=== PATIENT | male | born 1970 | race Caucasian/White ===

== ENCOUNTER → 2021-08-24 | Outpatient (CLI) | payer BC ==
[2021-08-24 13:06] LABS: BASO # 0.1 10^3/uL (0.0-0.2); BASO % 1.1 % (0.0-1.0); EOS % 0.3 % (0.0-3.0); HEMATOCRIT 41.8 % (42.0-52.0); HEMOGLOBIN 14.7 g/dl (13.5-17.5); LYMPH # 1.8 10^3/uL (1.5-5.0); LYMPH % 25.6 % (24.0-44.0); MEAN CORPUSCULAR HEMOGLOBIN 37.9 pg (27.0-33.0); MEAN CORPUSCULAR HGB CONC 35.2 g/dl (32.0-36.5); MEAN CORPUSCULAR VOLUME 107.7 fl (80.0-96.0); MONO # 0.7 10^3/uL (0.0-0.8); MONO % 9.5 % (2.0-8.0); NEUTROPHILS # 4.4 10^3/uL (1.5-8.5); NEUTROPHILS % 62.7 % (36.0-66.0); PLATELET COUNT, AUTOMATED 140 10^3/uL (150-450); RED BLOOD COUNT 3.88 10^6/uL (4.30-6.10); WHITE BLOOD COUNT 7.1 10^3/uL (4.0-10.0)
[2021-08-24 13:41] LABS: ALBUMIN 4.2 GM/DL (3.2-5.2); ALT/SGPT 41 U/L (12-78); BILIRUBIN,TOTAL 0.7 MG/DL (0.2-1.0); BLOOD UREA NITROGEN 12 MG/DL (7-18); CALCIUM LEVEL 9.3 MG/DL (8.5-10.1); CARBON DIOXIDE LEVEL 29 MEQ/L (21-32); CHLORIDE LEVEL 106 MEQ/L (98-107); CHOLESTEROL LEVEL 245 MG/DL (<200); CHOLESTEROL RISK RATIO 4.016 (<5); CREATININE FOR GFR 0.83 MG/DL (0.70-1.30); FREE T4 0.95 NG/DL (0.76-1.46); GLOMERULAR FILTRATION RATE > 60.0 (>56); GLUCOSE, FASTING 97 MG/DL (70-100); HDL CHOLESTEROL 61 MG/DL (>40); LDL CHOLESTEROL 154 MG/DL (<100); NON-HDL-C 184 MG/DL; POTASSIUM SERUM 4.5 MEQ/L (3.5-5.1); SODIUM LEVEL 138 MEQ/L (136-145); TOTAL PROTEIN 7.7 GM/DL (6.4-8.2); TRIGLYCERIDES LEVEL 148 MG/DL (<150)
[2021-08-25 23:07] LABS: PSA TOTAL 2.1 ng/mL (0.0-4.0)
== END ==
LOC: M PLALAB 11:10
PROVIDERS: ATTEND Nurse Practitioner Adult Health
DX: I10 Essential (primary) hypertension (principal); C92.01 Acute myeloblastic leukemia, in remission; Z13.220 Encounter for screening for lipoid disorders; Z13.29 Encounter for screening for other suspected endocrine disorder; Z12.5 Encounter for screening for malignant neoplasm of prostate

== ENCOUNTER → 2021-10-05 | Outpatient (CLI) | payer BC ==
[~2021-10-05] MED LIST: LOSA50TA28 PO; THERTAB52 PO
== END ==
LOC: M LABSMTC 09:47
PROVIDERS: ATTEND Anesthesiology
DX: Z01.812 Encounter for preprocedural laboratory examination (principal); Z11.52 Encounter for screening for COVID-19

== ENCOUNTER 2021-10-09 08:19 | Day surgery (SDC) | payer BC ==
[~2021-10-09] VITALS: Ht 180.3 cm; Wt 109.3 kg
[~2021-10-09 08:19] MED LIST changes: +LR 1,000 ML IV ONE; +ceFAZolin SOD 2 GM in IV 1 EA IV ONE
[2021-10-09] MEDS ORDERED: ROCURONIUM BROMIDE 50 MG/5 ML VIAL As Ordered ONE ×2 (11:02→13:11)
[2021-10-09] MEDS ORDERED: MIDAZOLAM INJ 2MG/2ML VIAL (J2250 PER 1MG) As Ordered ONE (11:02)
[2021-10-09] MEDS ORDERED: dexameTHASONE 4 MG/ML 1ML VIAL (J1100 PER 1MG) As Ordered ONE (11:02)
[2021-10-09] MEDS ORDERED: propofoL 200 MG/20 ML VIAL As Ordered ONE ×2 (11:02→14:48)
[2021-10-09] MEDS ORDERED: fentaNYL 250 MCG/5 ML INJECTION As Ordered ONE (11:02)
[2021-10-09] MEDS ORDERED: LIDOCAINE 2% 100MG/5ML SDV (FOR ANES.) As Ordered ONE (11:02)
[2021-10-09] MEDS ORDERED: ONDANSETRON 4MG/2ML VIAL As Ordered ONE (11:02)
[2021-10-09] MEDS ORDERED: KETOROLAC 60MG 2ML VIAL As Ordered ONE (11:09)
[2021-10-09] MEDS ORDERED: SUGAMMADEX SODIUM 500 MG/5 ML VIAL (BRIDION) As Ordered ONE (11:09)
[2021-10-09] MEDS ORDERED: HYDROmorphone HCL 2MG/ML 1ML VIAL As Ordered ONE (12:53)
[2021-10-09] MEDS ORDERED: BUPIVACAINE/EPIN 0.25% 30 ML VIAL As Ordered ONE (13:00)
[2021-10-09] MEDS ORDERED: ePHEDrine SULFATE 25 MG/5 ML(5MG/ML) SYRINGE As Ordered ONE (13:06)
[2021-10-09] MEDS ORDERED: ACETAMINOPHEN 1000MG 100ML IV BTL (OFIRMEV) (J0131 PER 10MG) As Ordered ONE (13:16)
[2021-10-09] MEDS ORDERED: HYDROMORPHONE HCL 0.5 MG/ 0.5 ML SYRINGE (J1170 PER 1) IV PRN (14:10)
[2021-10-09] MEDS ORDERED: LR 1,000 ML IV SCH (14:10)
[2021-10-09] MEDS ORDERED: ONDANSETRON 4MG/2ML VIAL IV PRN (14:10)
[2021-10-09] MEDS ORDERED: fentaNYL 100 MCG/2 ML INJECTION IV PRN (14:10)
[2021-10-09] MEDS ORDERED: NORCO, ANEXSIA 5/325MG TABLET (HYDROcodone/ACETAMINOPHEN) PO PRN (14:15)
[2021-10-09] MEDS: oxyCODONE 5MG TAB PO PRN ×2 (14:22→14:46)
[2021-10-09 15:30] VITALS: BP 142/70
== END 2021-10-09 15:38 | disposition home or self-care (01) ==
LOC: M SDC 08:19
PROVIDERS: ATTEND Surgery
DX: K40.90 Unilateral inguinal hernia, without obstruction or gangrene, not specified as recurrent (principal); I10 Essential (primary) hypertension; E78.00 Pure hypercholesterolemia, unspecified; C92.01 Acute myeloblastic leukemia, in remission; F41.1 Generalized anxiety disorder; F17.210 Nicotine dependence, cigarettes, uncomplicated; Z79.899 Other long term (current) drug therapy; Z88.8 Allergy status to other drugs, medicaments and biological substances
CPT/HCPCS: 49650; C1781; J0131; J0690; J1100; J1170; J1885; J2250; J2405; J3010; S2900

== ENCOUNTER → 2022-06-22 | Outpatient (CLI) | payer BC ==
[~2022-06-22] MED LIST changes: -LR 1,000 ML IV ONE; -ceFAZolin SOD 2 GM in IV 1 EA IV ONE
[2022-06-22 11:06] LABS: BASO # 0.1 10^3/uL (0.0-0.2); BASO % 1.3 % (0.0-1.0); EOS % 0.7 % (0.0-3.0); HEMATOCRIT 41.1 % (42.0-52.0); HEMOGLOBIN 14.2 g/dl (13.5-17.5); LYMPH # 2.1 10^3/uL (1.5-5.0); LYMPH % 38.7 % (24.0-44.0); MEAN CORPUSCULAR HEMOGLOBIN 38.6 pg (27.0-33.0); MEAN CORPUSCULAR HGB CONC 34.5 g/dl (32.0-36.5); MEAN CORPUSCULAR VOLUME 111.7 fl (80.0-96.0); MONO # 0.7 10^3/uL (0.0-0.8); NEUTROPHILS # 2.5 10^3/uL (1.5-8.5); NEUTROPHILS % 45.6 % (36.0-66.0); PLATELET COUNT, AUTOMATED 148 10^3/uL (150-450); RED BLOOD COUNT 3.68 10^6/uL (4.30-6.10); WHITE BLOOD COUNT 5.4 10^3/uL (4.0-10.0)
[2022-06-22 11:31] LABS: ALBUMIN 4.3 G/DL (3.2-5.2); ALKALINE PHOSPHATASE 77 U/L (46-116); ALT/SGPT 36 U/L (7.0-40); AST/SGOT 28 U/L (<34); BILIRUBIN,TOTAL 0.9 MG/DL (0.3-1.2); BLOOD UREA NITROGEN 13 MG/DL (9-23); CALCIUM LEVEL 9.2 MG/DL (8.5-10.1); CARBON DIOXIDE LEVEL 26 MMOL/L (20-31); CHLORIDE LEVEL 105 MMOL/L (98-107); CHOLESTEROL LEVEL 217 MG/DL (<200); CHOLESTEROL RISK RATIO 4.35 (<5); CREATININE FOR GFR 0.73 MG/DL (0.70-1.30); GLOMERULAR FILTRATION RATE > 60.0 (>56); GLUCOSE, FASTING 107 MG/DL (60-100); HDL CHOLESTEROL 49.8 MG/DL (>40); LDL CHOLESTEROL 143.4 MG/DL (<100); NON-HDL-C 167 MG/DL; POTASSIUM SERUM 4.6 MMOL/L (3.5-5.1); SODIUM LEVEL 138 MMOL/L (136-145); TOTAL PROTEIN 7.4 G/DL (5.7-8.2); TRIGLYCERIDES LEVEL 119 MG/DL (<150)
[2022-06-22 11:36] LABS: THYROID STIMULATING HORMONE 1.403 uIU/ML (0.55-4.78)
== END ==
LOC: M PLALAB 08:59
PROVIDERS: ATTEND Nurse Practitioner Adult Health
DX: E78.00 Pure hypercholesterolemia, unspecified (principal); I10 Essential (primary) hypertension; F41.1 Generalized anxiety disorder

== ENCOUNTER → 2023-02-16 | Outpatient (CLI) | payer BC ==
[2023-02-16 14:22] LABS: BASO # 0.1 10^3/uL (0.0-0.2); BASO % 1.4 % (0.0-1.0); EOS % 0.7 % (0.0-3.0); HEMATOCRIT 39.4 % (42.0-52.0); HEMOGLOBIN 13.7 g/dl (13.5-17.5); LYMPH # 2.2 10^3/uL (1.5-5.0); LYMPH % 36.9 % (24.0-44.0); MEAN CORPUSCULAR HEMOGLOBIN 38.8 pg (27.0-33.0); MEAN CORPUSCULAR HGB CONC 34.8 g/dl (32.0-36.5); MEAN CORPUSCULAR VOLUME 111.6 fl (80.0-96.0); MONO # 0.7 10^3/uL (0.0-0.8); MONO % 11.6 % (2.0-8.0); NEUTROPHILS # 2.8 10^3/uL (1.5-8.5); NEUTROPHILS % 48.5 % (36.0-66.0); PLATELET COUNT, AUTOMATED 151 10^3/uL (150-450); RED BLOOD COUNT 3.53 10^6/uL (4.30-6.10); WHITE BLOOD COUNT 5.9 10^3/uL (4.0-10.0)
[2023-02-16 14:47] LABS: ALBUMIN 4.3 G/DL (3.2-5.2); ALKALINE PHOSPHATASE 89 U/L (46-116); ALT/SGPT 34 U/L (7.0-40); AST/SGOT 25 U/L (<34); BILIRUBIN,TOTAL 1.1 MG/DL (0.3-1.2); BLOOD UREA NITROGEN 11 MG/DL (9-23); CALCIUM LEVEL 9.4 MG/DL (8.5-10.1); CARBON DIOXIDE LEVEL 28 MMOL/L (20-31); CHLORIDE LEVEL 105 MMOL/L (98-107); CHOLESTEROL LEVEL 220 MG/DL (<200); CHOLESTEROL RISK RATIO 4.17 (<5); CREATININE FOR GFR 0.74 MG/DL (0.70-1.30); FREE T4 1.26 NG/DL (0.89-1.76); GLOMERULAR FILTRATION RATE > 60.0 (>56); GLUCOSE, FASTING 107 MG/DL (60-100); HDL CHOLESTEROL 52.7 MG/DL (>40); LDL CHOLESTEROL 145.7 MG/DL (<100); NON-HDL-C 167.3 MG/DL; POTASSIUM SERUM 4.2 MMOL/L (3.5-5.1); SODIUM LEVEL 139 MMOL/L (136-145); THYROID STIMULATING HORMONE 1.544 uIU/ML (0.55-4.78); TOTAL PROTEIN 7.6 G/DL (5.7-8.2); TRIGLYCERIDES LEVEL 108 MG/DL (<150)
[2023-02-17 23:11] LABS: PSA TOTAL 2.4 ng/mL (0.0-4.0)
== END ==
LOC: M PLALAB 10:01
PROVIDERS: ATTEND Nurse Practitioner Adult Health
DX: E78.00 Pure hypercholesterolemia, unspecified (principal); C92.01 Acute myeloblastic leukemia, in remission; I10 Essential (primary) hypertension; Z12.5 Encounter for screening for malignant neoplasm of prostate

== ENCOUNTER → 2023-03-23 | Day surgery (SDC) | payer BC ==
[~2023-03-23] VITALS: Ht 180.3 cm; Wt 107.9 kg
[~2023-03-23] MED LIST changes: +LIDOCAINE 2% 100MG/5ML SDV (FOR ANES.) As Ordered ONE; +NS 1,000 ML IV ONE; +propofoL 200 MG/20 ML VIAL As Ordered ONE
[2023-03-23 12:39] VITALS: TEMP 97.7
[2023-03-23 13:00] VITALS: BP 117/72; O2SAT 96
== END | disposition home or self-care (01) ==
LOC: M OPP 10:55
PROVIDERS: ATTEND Surgery
DX: Z12.11 Encounter for screening for malignant neoplasm of colon (principal); K63.5 Polyp of colon; K64.1 Second degree hemorrhoids; I10 Essential (primary) hypertension; G47.30 Sleep apnea, unspecified; F17.210 Nicotine dependence, cigarettes, uncomplicated; Z85.6 Personal history of leukemia; Z88.8 Allergy status to other drugs, medicaments and biological substances; Z79.899 Other long term (current) drug therapy

== ENCOUNTER 2023-04-17 15:00 | Inpatient (IN) | payer BC ==
[~2023-04-17] VITALS: Ht 180.3 cm; Wt 107.1 kg
[~2023-04-17 15:00] MED LIST changes: -LIDOCAINE 2% 100MG/5ML SDV (FOR ANES.) As Ordered ONE; -NS 1,000 ML IV ONE; -propofoL 200 MG/20 ML VIAL As Ordered ONE
[2023-04-17] MEDS ORDERED: NS 1,000 ML IV ONE ×2 (15:15→17:50)
[2023-04-17] MEDS ORDERED: ACETAMINOPHEN 325 MG TAB PO ONE (15:30)
[2023-04-17] MEDS ORDERED: AMOX875T2 PO (15:36)
[2023-04-17] MEDS: METOPROLOL 5 MG/5 ML VIAL IV SCH ×3 (15:44→16:10)
[2023-04-17 15:46] LABS: BASO % 0.2 % (0.0-1.0); HEMATOCRIT 36.9 % (42.0-52.0); HEMOGLOBIN 13.6 g/dl (13.5-17.5); LYMPH # 1.8 10^3/uL (1.5-5.0); MEAN CORPUSCULAR HEMOGLOBIN 38.9 pg (27.0-33.0); MEAN CORPUSCULAR VOLUME 105.4 fl (80.0-96.0); MONO % 14.7 % (2.0-8.0); NEUTROPHILS % 73.4 % (36.0-66.0); PLATELET COUNT, AUTOMATED 153 10^3/uL (150-450); WHITE BLOOD COUNT 16.4 10^3/uL (4.0-10.0)
[2023-04-17] MEDS ORDERED: LevoFLOXacin IV 750 MG in IV 1 EA IV ONE (16:00)
[2023-04-17 16:22] LABS: CPK CREATINE PHOSPHOKINASE 274 U/L (46-171)
[2023-04-17 16:23] LABS: ALBUMIN 3.4 G/DL (3.2-5.2); ALKALINE PHOSPHATASE 61 U/L (46-116); ALT/SGPT 30 U/L (7.0-40); AST/SGOT 46 U/L (<34); BILIRUBIN,DIRECT 0.3 MG/DL (<0.4); BILIRUBIN,TOTAL 0.9 MG/DL (0.3-1.2); BLOOD UREA NITROGEN 20 MG/DL (9-23); CALCIUM LEVEL 8.7 MG/DL (8.5-10.1); CARBON DIOXIDE LEVEL 21 MMOL/L (20-31); CHLORIDE LEVEL 97 MMOL/L (98-107); CK-MB VALUE MASS < 1.0 NG/ML (<3.6); CREATININE FOR GFR 1.23 MG/DL (0.70-1.30); GLOMERULAR FILTRATION RATE > 60.0 (>56); GLUCOSE, FASTING 175 MG/DL (60-100); MAGNESIUM LEVEL 1.9 MG/DL (1.8-2.4); MB/CK RELATIVE INDEX 0.36 (< OR =4); POTASSIUM SERUM 3.6 MMOL/L (3.5-5.1); SODIUM LEVEL 130 MMOL/L (136-145); TOTAL PROTEIN 7.4 G/DL (5.7-8.2)
[2023-04-17 16:24] LABS: THYROXINE (T4) 7.4 UG/DL (4.5-10.9)
[2023-04-17 16:25] LABS: THYROID STIMULATING HORMONE 1.486 uIU/ML (0.55-4.78)
[2023-04-17] MEDS ORDERED: ISOVUE-370 76% 100ML VIAL As Ordered ONE (16:38)
[2023-04-17 17:03] LABS: MEAN CORPUSCULAR HGB CONC 36.9 g/dl (32.0-36.5); MONO # 2.4 10^3/uL (0.0-0.8)
[2023-04-17] MEDS ORDERED: NS 1,000 ML IV SCH (17:40)
[2023-04-17] MEDS ORDERED: IBUPROFEN 600MG TAB PO ONE (17:40)
[2023-04-17] MEDS ORDERED: METOPROLOL TART 25 MG TABLET PO ONE (17:40)
[2023-04-17 18:20] LABS: PROCALCITONIN 0.73 ng/ml
[2023-04-17] MEDS ORDERED: NS IV ONE (18:20)
[2023-04-17 18:55] LABS: CK-MB VALUE MASS < 1.0 NG/ML (<3.6)
[2023-04-17 18:56] LABS: CPK CREATINE PHOSPHOKINASE 222 U/L (46-171); MB/CK RELATIVE INDEX 0.45 (< OR =4)
[2023-04-17] MEDS ORDERED: HOME MED LIST COMPLETE! XX SCH (19:55)
[2023-04-17] MEDS: IPRATROPIUM 0.5MG/ALBUTEROL 2.5MG INH SOL UD 3ML (DUONEB) INH SCH (20:00)
[2023-04-17] MEDS ORDERED: LEVALBUTEROL 1.25MG 0.5ML CONCENTRATE NEB INH PRN (21:05)
[2023-04-17] MEDS ORDERED: GLUCAGON INJ 1MG VIAL SC PRN (21:05)
[2023-04-17] MEDS ORDERED: DEXTROSE 50% 50ML SYRINGE IV PRN (21:05)
[2023-04-17] MEDS ORDERED: GLUCOSE 4GM CHEW TABLET PO PRN (21:05)
[2023-04-17] MEDS ORDERED: DIGOXIN INJ 0.5 MG/2 ML AMP IV ONE (22:00)
[2023-04-18] VITALS (16 sets, daily range): BP systolic 120–186; BP diastolic 62–96; TEMP 100.1–103.4; O2SAT 93–98
[2023-04-18] MEDS: ACETAMINOPHEN TAB 650MG DOSE (2X325MG) PO PRN ×2 (00:42→08:58)
[2023-04-18] MEDS: IPRATROPIUM 0.5MG/ALBUTEROL 2.5MG INH SOL UD 3ML (DUONEB) INH SCH ×4 (02:16→19:44)
[2023-04-18] MEDS ORDERED: ACETAMINOPHEN TAB 650MG DOSE (2X325MG) PO ONE (05:00)
[2023-04-18] MEDS ORDERED: HEPARIN SOD (PORCINE) 5000UNITS/ML 1ML VIAL/SYRINGE SC SCH (06:00)
[2023-04-18 06:44] LABS: BLOOD UREA NITROGEN 19 MG/DL (9-23); CALCIUM LEVEL 7.6 MG/DL (8.5-10.1); CARBON DIOXIDE LEVEL 20 MMOL/L (20-31); CHLORIDE LEVEL 101 MMOL/L (98-107); CREATININE FOR GFR 0.81 MG/DL (0.70-1.30); GLOMERULAR FILTRATION RATE > 60.0 (>56); GLUCOSE, FASTING 126 MG/DL (60-100); POTASSIUM SERUM 3.4 MMOL/L (3.5-5.1); SODIUM LEVEL 131 MMOL/L (136-145)
[2023-04-18 06:45] LABS: HEMOGLOBIN A1c 5.6 % (4.0-6.0)
[2023-04-18] MEDS: INSULIN LISPRO (NovoLOG) PER UNIT SC SCH ×4 (07:30→21:00)
[2023-04-18] MEDS: ASPIRIN 325 MG TAB PO SCH (08:58)
[2023-04-18] MEDS: METOPROLOL TART 25 MG TABLET PO SCH ×2 (10:00→20:14)
[2023-04-18] MEDS ORDERED: LevoFLOXacin 750 MG TABLET PO SCH (11:00)
[2023-04-18] MEDS ORDERED: POTASSIUM CHLORIDE 10MEQ SR TABLET PO ONE (11:15)
[2023-04-18 11:26] LABS: IRON (FE) 56 UG/DL (65-175); PERCENT SATURATION 30.1 % (19.7-50.0); TOTAL IRON BINDING CAPACITY 186 UG/DL (250-425)
[2023-04-18 11:35] LABS: FOLATE > 24.0 NG/ML (>5.4); MAGNESIUM LEVEL 1.7 MG/DL (1.8-2.4); VITAMIN B12 LEVEL 582 PG/ML (211-911)
[2023-04-18 11:42] LABS: INR 1.26; PARTIAL THROMBOPLASTIN TIME 35.5 SECONDS (24.8-34.2); PROTHROMBIN TIME 15.4 SECONDS (12.5-14.5)
[2023-04-18] MEDS: ACETAMINOPHEN 500 MG TAB PO SCH ×3 (12:23→23:21)
[2023-04-18] MEDS: guaiFENesin/CODEINE SYRUP 5 ML UDC PO SCH ×4 (12:23→23:20)
[2023-04-18] MEDS ORDERED: IBUPROFEN 800 MG TAB PO PRN (16:05)
[2023-04-18] MEDS: MAG SULF 1GM/100ML (MAG RUN) 1 GM in IV 1 EA IV SCH ×4 (16:26→23:20)
[2023-04-18] MEDS: RIVAROXABAN 10MG TAB (XARELTO) PO SCH (18:33)
[2023-04-18 19:35] LABS: BASO % 0.1 % (0.0-1.0); HEMATOCRIT 29.3 % (42.0-52.0); LYMPH # 1.2 10^3/uL (1.5-5.0); LYMPH % 12.2 % (24.0-44.0); MEAN CORPUSCULAR HEMOGLOBIN 38.7 pg (27.0-33.0); MEAN CORPUSCULAR HGB CONC 36.2 g/dl (32.0-36.5); MEAN CORPUSCULAR VOLUME 106.9 fl (80.0-96.0); MONO # 1.4 10^3/uL (0.0-0.8); MONO % 14.4 % (2.0-8.0); NEUTROPHILS % 72.5 % (36.0-66.0); PLATELET COUNT, AUTOMATED 147 10^3/uL (150-450); RED BLOOD COUNT 2.74 10^6/uL (4.30-6.10); WHITE BLOOD COUNT 9.6 10^3/uL (4.0-10.0)
[2023-04-18 19:42] LABS: HEMOGLOBIN 10.6 g/dl (13.5-17.5)
[2023-04-18] MEDS: PIPERACILLIN/TAZOBACTAM SOD 3.375 GM in D5W MINI-BAG PLUS 50 ML IV SCH (20:14)
[2023-04-19] VITALS (12 sets, daily range): BP systolic 89–127; BP diastolic 52–78; TEMP 95.1–101; O2SAT 92–96
[2023-04-19] MEDS ORDERED: METOPROLOL 5 MG/5 ML VIAL IV STA ×2 (00:31→00:54)
[2023-04-19] MEDS ORDERED: METOPROLOL 5 MG/5 ML VIAL As Ordered ONE (00:32)
[2023-04-19] MEDS: PIPERACILLIN/TAZOBACTAM SOD 3.375 GM in D5W MINI-BAG PLUS 50 ML IV SCH ×3 (00:51→11:23)
[2023-04-19] MEDS ORDERED: NAPROXEN 250 MG TAB PO ONE (01:05)
[2023-04-19] MEDS ORDERED: DIGOXIN INJ 0.5 MG/2 ML AMP IV ONE ×2 (01:10→01:35)
[2023-04-19] MEDS ORDERED: METOPROLOL TART 50 MG TAB PO ONE (01:35)
[2023-04-19] MEDS: IPRATROPIUM 0.5MG/ALBUTEROL 2.5MG INH SOL UD 3ML (DUONEB) INH SCH ×4 (02:43→19:20)
[2023-04-19] MEDS: guaiFENesin/CODEINE SYRUP 5 ML UDC PO SCH ×5 (04:17→20:34)
[2023-04-19 05:50] LABS: BASO % 0.3 % (0.0-1.0); HEMATOCRIT 30.1 % (42.0-52.0); HEMOGLOBIN 10.7 g/dl (13.5-17.5); LYMPH # 1.5 10^3/uL (1.5-5.0); MEAN CORPUSCULAR HEMOGLOBIN 38.2 pg (27.0-33.0); MEAN CORPUSCULAR HGB CONC 35.5 g/dl (32.0-36.5); MEAN CORPUSCULAR VOLUME 107.5 fl (80.0-96.0); MONO % 10.6 % (2.0-8.0); NEUTROPHILS # 6.8 10^3/uL (1.5-8.5); NEUTROPHILS % 72.4 % (36.0-66.0); PLATELET COUNT, AUTOMATED 142 10^3/uL (150-450); WHITE BLOOD COUNT 9.4 10^3/uL (4.0-10.0)
[2023-04-19 06:13] LABS: BLOOD UREA NITROGEN 17 MG/DL (9-23); CARBON DIOXIDE LEVEL 20 MMOL/L (20-31); CHLORIDE LEVEL 102 MMOL/L (98-107); GLOMERULAR FILTRATION RATE > 60.0 (>56); GLUCOSE, FASTING 135 MG/DL (60-100); MAGNESIUM LEVEL 2.5 MG/DL (1.8-2.4); POTASSIUM SERUM 3.6 MMOL/L (3.5-5.1); SODIUM LEVEL 131 MMOL/L (136-145)
[2023-04-19] MEDS: ACETAMINOPHEN 500 MG TAB PO SCH ×3 (06:15→17:16)
[2023-04-19] MEDS: INSULIN LISPRO (NovoLOG) PER UNIT SC SCH ×4 (07:30→20:33)
[2023-04-19] MEDS ORDERED: DIGOXIN INJ 0.5 MG/2 ML AMP IV STA ×2 (08:52→11:05)
[2023-04-19] MEDS ORDERED: POTASSIUM CHLORIDE 10MEQ SR TABLET PO ONE (09:00)
[2023-04-19] MEDS: DIGOXIN 0.25 MG TAB PO SCH (09:00)
[2023-04-19] MEDS: METOPROLOL TART 50 MG TAB PO SCH ×2 (09:00→15:24)
[2023-04-19] MEDS: ASPIRIN 325 MG TAB PO SCH (09:22)
[2023-04-19] MEDS: PANTOPRAZOLE 40MG TAB (PROTONIX) PO SCH (09:22)
[2023-04-19] MEDS: PIPERACILLIN/TAZOBACTAM SOD 4.5 GM in D5W MINI-BAG PLUS 50 ML IV SCH (17:15)
[2023-04-19] MEDS: RIVAROXABAN 10MG TAB (XARELTO) PO SCH (17:16)
[2023-04-20 00:03] VITALS: BP 112/68; TEMP 100.9; O2SAT 100
[2023-04-20] MEDS: guaiFENesin/CODEINE SYRUP 5 ML UDC PO SCH ×4 (00:41→11:21)
[2023-04-20] MEDS: ACETAMINOPHEN 500 MG TAB PO SCH ×3 (00:42→11:21)
[2023-04-20] MEDS: PIPERACILLIN/TAZOBACTAM SOD 4.5 GM in D5W MINI-BAG PLUS 50 ML IV SCH ×2 (00:42→05:08)
[2023-04-20] MEDS: IPRATROPIUM 0.5MG/ALBUTEROL 2.5MG INH SOL UD 3ML (DUONEB) INH SCH ×2 (01:43→08:10)
[2023-04-20 03:49] VITALS: BP 116/70; TEMP 98.5; O2SAT 96
[2023-04-20 07:25] LABS: BASO % 0.3 % (0.0-1.0); EOS % 0.2 % (0.0-3.0); HEMATOCRIT 29.4 % (42.0-52.0); HEMOGLOBIN 10.5 g/dl (13.5-17.5); LYMPH # 1.3 10^3/uL (1.5-5.0); LYMPH % 20.9 % (24.0-44.0); MEAN CORPUSCULAR HEMOGLOBIN 38.3 pg (27.0-33.0); MEAN CORPUSCULAR HGB CONC 35.7 g/dl (32.0-36.5); MEAN CORPUSCULAR VOLUME 107.3 fl (80.0-96.0); MONO % 15.6 % (2.0-8.0); NEUTROPHILS % 62.1 % (36.0-66.0); PLATELET COUNT, AUTOMATED 154 10^3/uL (150-450); RED BLOOD COUNT 2.74 10^6/uL (4.30-6.10); WHITE BLOOD COUNT 6.4 10^3/uL (4.0-10.0)
[2023-04-20] MEDS: INSULIN LISPRO (NovoLOG) PER UNIT SC SCH (07:30)
[2023-04-20 07:45] VITALS: BP 110/67; O2SAT 97
[2023-04-20 07:56] LABS: BLOOD UREA NITROGEN 18 MG/DL (9-23); CALCIUM LEVEL 8.1 MG/DL (8.5-10.1); CARBON DIOXIDE LEVEL 23 MMOL/L (20-31); CHLORIDE LEVEL 103 MMOL/L (98-107); CREATININE FOR GFR 0.73 MG/DL (0.70-1.30); GLOMERULAR FILTRATION RATE > 60.0 (>56); GLUCOSE, FASTING 128 MG/DL (60-100); MAGNESIUM LEVEL 2.1 MG/DL (1.8-2.4); POTASSIUM SERUM 3.5 MMOL/L (3.5-5.1); SODIUM LEVEL 135 MMOL/L (136-145)
[2023-04-20 07:58] VITALS: BP 110/68
[2023-04-20] MEDS: ASPIRIN 325 MG TAB PO SCH (07:58)
[2023-04-20] MEDS: PANTOPRAZOLE 40MG TAB (PROTONIX) PO SCH (07:58)
[2023-04-20] MEDS: METOPROLOL TART 50 MG TAB PO SCH (07:58)
[2023-04-20] MEDS: DIGOXIN 0.25 MG TAB PO SCH (07:59)
[2023-04-20] MEDS ORDERED: DIGOXIN INJ 0.5 MG/2 ML AMP IV STA (08:24)
[2023-04-20 08:43] LABS: DIGOXIN LEVEL 0.4 NG/ML (0.8-2.0)
[2023-04-20] MEDS ORDERED: POTASSIUM CHLORIDE 10MEQ SR TABLET PO ONE (09:00)
[2023-04-20] MEDS ORDERED: METO50TA7 PO (10:18)
[2023-04-20] MEDS ORDERED: DIGO0.253 PO (10:18)
[2023-04-20] MEDS ORDERED: ASPI81CH33 PO (10:22)
[2023-04-20] MEDS ORDERED: AMOX875T2 PO (10:22)
[2023-04-20] MEDS ORDERED: LEVA45AE INH (10:23)
[2023-04-20 11:40] VITALS: BP 125/61; TEMP 96.6; O2SAT 96
[2023-04-20 16:08] LABS: BODY FLUID CULTURE Not indicated. (.); LEGIONELLA ANTIGEN URINE Negative (Negative); ORGANISM ID Not indicated. (.); SPECIMEN SOURCE Urine (.); URINE STREP PNEUMONIAE ANTIGEN Negative (Negative)
[2023-04-20] MEDS ORDERED: METOPROLOL TARTRATE 100MG TAB PO SCH (21:00)
== END 2023-04-20 11:52 | disposition home or self-care (01) | DRG 720 ==
LOC: M ED 15:00 → M ED INP 21:04 → ENRESERV 22:38 → M PCU 04-18 00:25
PROVIDERS: ADMIT Internal Medicine; ATTEND Internal Medicine
PROC: B246ZZZ Ultrasonography of Right and Left Heart (ICD-10-PCS; principal; 2023-04-19)
DX: A41.89 Other specified sepsis (principal); J15.69 Pneumonia due to other Gram-negative bacteria; N17.9 Acute kidney failure, unspecified; E87.20 Acidosis, unspecified; I48.0 Paroxysmal atrial fibrillation; E87.1 Hypo-osmolality and hyponatremia; B34.0 Adenovirus infection, unspecified; R73.9 Hyperglycemia, unspecified; I10 Essential (primary) hypertension; R19.7 Diarrhea, unspecified; D75.89 Other specified diseases of blood and blood-forming organs; F17.210 Nicotine dependence, cigarettes, uncomplicated; Z79.899 Other long term (current) drug therapy; R65.20 Severe sepsis without septic shock

== ENCOUNTER → 2023-04-20 | Outpatient (CLI) | payer BC ==
[~2023-04-20] MED LIST changes: +AMOX875T2 PO; +ASPI81CH33 PO; +DIGO0.253 PO; +LEVA45AE INH; +METO50TA7 PO
== END ==
LOC: M EKG 12:02
PROVIDERS: ATTEND Internal Medicine
DX: Z53.9 Procedure and treatment not carried out, unspecified reason (principal)

== ENCOUNTER → 2023-05-09 | Outpatient (CLI) | payer BC ==
[2023-05-09 14:06] LABS: DIGOXIN LEVEL 0.6 NG/ML (0.8-2.0)
[2023-05-09 14:07] LABS: BLOOD UREA NITROGEN 13 MG/DL (9-23); CALCIUM LEVEL 9.5 MG/DL (8.5-10.1); CARBON DIOXIDE LEVEL 26 MMOL/L (20-31); CHLORIDE LEVEL 107 MMOL/L (98-107); CREATININE FOR GFR 0.62 MG/DL (0.70-1.30); GLOMERULAR FILTRATION RATE > 60.0 (>56); GLUCOSE, FASTING 115 MG/DL (60-100); POTASSIUM SERUM 4.6 MMOL/L (3.5-5.1); SODIUM LEVEL 142 MMOL/L (136-145)
== END ==
LOC: M PLALAB 09:08
PROVIDERS: ATTEND Nurse Practitioner Adult Health
DX: I48.91 Unspecified atrial fibrillation (principal); N17.9 Acute kidney failure, unspecified

== ENCOUNTER → 2023-06-01 | Outpatient (CLI) | payer BC ==
[~2023-06-01] MED LIST changes: +ISOVUE-370 76% 100ML VIAL As Ordered ONE
== END ==
LOC: M RAD 13:46
PROVIDERS: ATTEND Nurse Practitioner Adult Health
DX: J18.9 Pneumonia, unspecified organism (principal); R91.1 Solitary pulmonary nodule; R16.0 Hepatomegaly, not elsewhere classified; K76.0 Fatty (change of) liver, not elsewhere classified; K80.20 Calculus of gallbladder without cholecystitis without obstruction
CPT/HCPCS: 71260; Q9967

== ENCOUNTER → 2023-07-01 | Outpatient (CLI) | payer BC ==
[~2023-07-01] MED LIST changes: -ISOVUE-370 76% 100ML VIAL As Ordered ONE
== END ==
LOC: M PLALAB 07:10
PROVIDERS: ATTEND Nurse Practitioner Adult Health
DX: Z51.81 Encounter for therapeutic drug level monitoring (principal); I48.91 Unspecified atrial fibrillation; Z79.899 Other long term (current) drug therapy

== ENCOUNTER → 2023-09-14 | Outpatient (CLI) | payer BC | LOC: M PLALAB 07:12 | PROVIDERS: ATTEND Nurse Practitioner Adult Health | DX: I48.91 Unspecified atrial fibrillation (principal) ==

== ENCOUNTER → 2023-11-02 | Outpatient (CLI) | payer BC ==
[2023-11-02 10:40] LABS: BASO # 0.1 10^3/uL (0.0-0.2); BASO % 1.6 % (0.0-1.0); EOS # 0.1 10^3/uL (0.0-0.5); EOS % 0.8 % (0.0-3.0); HEMATOCRIT 39.5 % (42.0-52.0); HEMOGLOBIN 13.6 g/dl (13.5-17.5); LYMPH # 2.2 10^3/uL (1.5-5.0); LYMPH % 35.3 % (24.0-44.0); MEAN CORPUSCULAR HEMOGLOBIN 39.2 pg (27.0-33.0); MEAN CORPUSCULAR HGB CONC 34.4 g/dl (32.0-36.5); MEAN CORPUSCULAR VOLUME 113.8 fl (80.0-96.0); MONO # 0.8 10^3/uL (0.0-0.8); MONO % 12.2 % (2.0-8.0); NEUTROPHILS # 3.1 10^3/uL (1.5-8.5); NEUTROPHILS % 49.1 % (36.0-66.0); PLATELET COUNT, AUTOMATED 150 10^3/uL (150-450); RED BLOOD COUNT 3.47 10^6/uL (4.30-6.10); WHITE BLOOD COUNT 6.3 10^3/uL (4.0-10.0)
[2023-11-02 11:02] LABS: ALBUMIN 3.8 G/DL (3.2-5.2); ALKALINE PHOSPHATASE 92 U/L (46-116); ALT/SGPT 28 U/L (7.0-40); AST/SGOT 15 U/L (<34); BILIRUBIN,TOTAL 0.9 MG/DL (0.3-1.2); BLOOD UREA NITROGEN 15 MG/DL (9-23); CALCIUM LEVEL 9.4 MG/DL (8.5-10.1); CARBON DIOXIDE LEVEL 27 MMOL/L (20-31); CHLORIDE LEVEL 106 MMOL/L (98-107); CHOLESTEROL LEVEL 187 MG/DL (<200); CHOLESTEROL RISK RATIO 3.91 (<5); CREATININE FOR GFR 0.69 MG/DL (0.70-1.30); GLOMERULAR FILTRATION RATE > 60.0 (>56); GLUCOSE, FASTING 132 MG/DL (60-100); HDL CHOLESTEROL 47.8 MG/DL (>40); LDL CHOLESTEROL 117.4 MG/DL (<100); NON-HDL-C 139.2 MG/DL; POTASSIUM SERUM 4.9 MMOL/L (3.5-5.1); SODIUM LEVEL 139 MMOL/L (136-145); TOTAL PROTEIN 7.2 G/DL (5.7-8.2); TRIGLYCERIDES LEVEL 109 MG/DL (<150)
[2023-11-02 11:03] LABS: THYROID STIMULATING HORMONE 2.221 uIU/ML (0.55-4.78)
== END ==
LOC: M PLALAB 08:38
PROVIDERS: ATTEND Nurse Practitioner Adult Health
DX: E78.00 Pure hypercholesterolemia, unspecified (principal); I10 Essential (primary) hypertension; C92.01 Acute myeloblastic leukemia, in remission

== ENCOUNTER → 2023-11-30 | Outpatient (CLI) | payer BC | LOC: M PLALAB 10:03 | PROVIDERS: ATTEND Nurse Practitioner Adult Health | DX: I48.91 Unspecified atrial fibrillation (principal) ==

== ENCOUNTER → 2024-02-02 | Outpatient (CLI) | payer BC ==
[2024-02-02 13:34] LABS: BASO # 0.1 10^3/uL (0.0-0.2); BASO % 1.5 % (0.0-1.0); EOS # 0.1 10^3/uL (0.0-0.5); EOS % 1.2 % (0.0-3.0); HEMATOCRIT 38.4 % (42.0-52.0); LYMPH # 2.5 10^3/uL (1.5-5.0); LYMPH % 42.3 % (24.0-44.0); MEAN CORPUSCULAR HEMOGLOBIN 39.5 pg (27.0-33.0); MEAN CORPUSCULAR HGB CONC 33.9 g/dl (32.0-36.5); MONO # 0.8 10^3/uL (0.0-0.8); MONO % 13.4 % (2.0-8.0); NEUTROPHILS # 2.4 10^3/uL (1.5-8.5); NEUTROPHILS % 40.9 % (36.0-66.0); PLATELET COUNT, AUTOMATED 137 10^3/uL (150-450); RED BLOOD COUNT 3.29 10^6/uL (4.30-6.10)
[2024-02-02 13:53] LABS: MEAN CORPUSCULAR VOLUME 116.7 fl (80.0-96.0)
[2024-02-02 13:57] LABS: HEMOGLOBIN A1c 5.7 % (4.0-6.0)
[2024-02-02 14:11] LABS: POLYCHROMASIA 2+
[2024-02-02 14:12] LABS: ALBUMIN 3.9 G/DL (3.2-5.2); ALKALINE PHOSPHATASE 94 U/L (46-116); ALT/SGPT 21 U/L (7.0-40); AST/SGOT 15 U/L (<34); BILIRUBIN,TOTAL 0.9 MG/DL (0.3-1.2); BLOOD UREA NITROGEN 20 MG/DL (9-23); CALCIUM LEVEL 9.4 MG/DL (8.5-10.1); CARBON DIOXIDE LEVEL 27 MMOL/L (20-31); CHLORIDE LEVEL 108 MMOL/L (98-107); CREATININE FOR GFR 0.78 MG/DL (0.70-1.30); GLOMERULAR FILTRATION RATE > 60.0 (>56); GLUCOSE, FASTING 117 MG/DL (60-100); PLATELET ESTIMATE NORMAL (NORMAL); POIKILOCYTOSIS 1+; POTASSIUM SERUM 4.3 MMOL/L (3.5-5.1); SODIUM LEVEL 141 MMOL/L (136-145); TOTAL PROTEIN 7.3 G/DL (5.7-8.2)
== END ==
LOC: M PLALAB 06:49
PROVIDERS: ATTEND Nurse Practitioner Adult Health
DX: I10 Essential (primary) hypertension (principal); R73.01 Impaired fasting glucose

== ENCOUNTER → 2024-04-13 | Outpatient (CLI) | payer BC ==
[~2024-04-13] MED LIST changes: +ISOVUE-370 76% 100ML VIAL As Ordered ONE
== END ==
LOC: M RAD 09:03
PROVIDERS: ATTEND Nurse Practitioner Adult Health
DX: D49.1 Neoplasm of unspecified behavior of respiratory system (principal); K80.20 Calculus of gallbladder without cholecystitis without obstruction; N28.1 Cyst of kidney, acquired
CPT/HCPCS: 71260; Q9967

== ENCOUNTER → 2024-08-17 | Outpatient (CLI) | payer BC ==
[~2024-08-17] MED LIST changes: -ISOVUE-370 76% 100ML VIAL As Ordered ONE
[2024-08-17 11:27] LABS: CHOLESTEROL RISK RATIO 5.28 (<5); HDL CHOLESTEROL 35.6 MG/DL (>40); NON-HDL-C 152.4 MG/DL
== END ==
LOC: M PLALAB 08:43
PROVIDERS: ATTEND Registered Nurse
DX: I10 Essential (primary) hypertension (principal)